=== PATIENT | male | born 1960 | race Caucasian/White ===

== ENCOUNTER → 2019-10-17 16:52 | Outpatient (BNVA) | payer MEDICARE, MEDICAID, SELFPAY | PROVIDERS: Family Provider Family Medicine; PCP Family Medicine; Visit Provider Family Medicine | DX: R41.3 Other amnesia (principal); Z12.2 Encounter for screening for malignant neoplasm of respiratory organs; F17.200 Nicotine dependence, unspecified, uncomplicated; J44.9 Chronic obstructive pulmonary disease, unspecified; I10 Essential (primary) hypertension; E03.9 Hypothyroidism, unspecified | CPT/HCPCS: 80053; 82607; 82746; 84443; 85025 ==

== ENCOUNTER 2019-11-07 07:50 | Outpatient (CLI) | payer MEDICARE, MEDICAID, SELFPAY ==
--- NOTE | 2019-11-07 08:00 | CT_ITS ---
WS: [id number] CT HEAD WITH AND WITHOUT CONTRAST HISTORY: New memory changes, headaches TECHNIQUE: Noncontrast 2.5 mm axial images obtained from the vertex to the skull base. Additional xenia ging performed at 2.5 mm axial images status post IV contrast. Bone and soft tissue windows are revie wed. All CT scans at [facility] use at least one of these dose optimization techniques: a utomated exposure control; mA and/or kV adjustment per patient size (includes targeted exams where do se is matched to clinical indication); or iterative reconstruction. CONTRAST: Omnipaque 300; 95 mL IV. DLP: 1328.14 mGy.cm COMPARISON: 04/29/2013 No acute intracranial hemorrhage, edema or midline shift. No enhancing mass or vascular malformations identified. Dural venous sinuses are normally enhancing. Visualized [place] is unremarkable. Paranasal sinuses as visualized: Clear. Mastoid air cells: Clear. Calvarium and scalp: Intact. Mild atherosclerosis of the intracranial carotid arteries. CT/CT head wo/w con [id number] IMPRESSION: 1. No significant atrophy or volume loss or chronic ischemic disease. 2. No enhancing masses. 3. Mild atherosclerosis intracranial carotid arteries.
[2019-11-07] MEDS: iohexol 300 mg/mL 100 mL Btl IV (09:21)
== END 2019-11-07 07:51 | disposition home or self-care (01) ==
PROVIDERS: Family Provider Family Medicine; PCP Family Medicine; Visit Provider Family Medicine
DX: R51 Headache (principal); R41.3 Other amnesia; I65.29 Occlusion and stenosis of unspecified carotid artery
CPT/HCPCS: 70470

== ENCOUNTER 2019-11-15 11:30 | Outpatient (CLI) | payer MEDICARE, MEDICAID, SELFPAY ==
--- NOTE | 2019-11-15 11:36 | XRR_ITS ---
PROCEDURE INFORMATION: Exam: XR Cervical Spine, 2 or 3 Views Exam date and time: 11/15/2019 11:55 AM Age: 59 years old Clinical indication: Neck pain; Additional info: Cervical pain TECHNIQUE: Imaging protocol: XR of the cervical spine, 2 or 3 views. COMPARISON: CR Cervical Spine AP/Lat* [id number] 08/29/2016 8:54 PM FINDINGS: Vertebrae: Mild disc space narrowing with mild vertebral body overgrowth/spurring C5-C6 and C6-C7. Normal overall alignment. No focal listhesis evident with flexion or extension. Soft tissues: Normal. XR/XR cervical spine fl/ex [id number] IMPRESSION: Mild lower cervical degenerative disc changes. Normal overall alignment.
== END 2019-11-15 11:31 | disposition home or self-care (01) ==
LOC: RAD 11:33
PROVIDERS: Family Provider Family Medicine; PCP Family Medicine; Visit Provider Specialist
DX: M54.2 Cervicalgia (principal)
CPT/HCPCS: 72040

== ENCOUNTER 2019-11-15 11:33 | Outpatient (CLI) | payer MEDICARE, MEDICAID, SELFPAY ==
--- NOTE | 2019-11-15 13:00 | CT_ITS ---
WS: [id number] CT LUNG CANCER SCREENING DLP: 61.02 mGy-cm. DIvol: 1.52 mGy CLINICAL INFORMATION SCREENING VISIT: Baseline COMPARISON: Chest CT 10/18/2009 FINDINGS Diagnostic quality: Satisfactory Comments: None. Lung Nodules: None. Lungs: Hyperexpanded lungs with changes of emphysema. No pneumonia. Heart: Normal size heart with a small amount of pericardial thickening or fluid anteriorly. Other findings: No adenopathy identified on this unenhanced study. Mild atherosclerosis of the thorac ic aortic arch. There is a moderate hiatal hernia. Limited evaluation of the upper abdominal structur es due to low-dose technique. Dorsal column stimulator wires and electrodes over the mid thoracic spine. Thoracic spondylitic vo es with no osteoblastic or osteolytic disease. CT/CT lung screening [id number] IMPRESSION: LUNG-RADS: 1-Negative FOLLOW UP: 12 Month: Continue annual screening with LDCT Moderate size hiatal hernia. Mild emphysema.
== END 2019-11-15 11:34 | disposition home or self-care (01) ==
LOC: RAD 11:35
PROVIDERS: Family Provider Family Medicine; PCP Family Medicine; Visit Provider Family Medicine
DX: Z12.2 Encounter for screening for malignant neoplasm of respiratory organs (principal); K44.9 Diaphragmatic hernia without obstruction or gangrene; J43.9 Emphysema, unspecified; F17.200 Nicotine dependence, unspecified, uncomplicated
CPT/HCPCS: G0297

== ENCOUNTER → 2019-11-28 10:16 | Outpatient (BNVA) | payer MEDICARE, MEDICAID, SELFPAY | PROVIDERS: Family Provider Family Medicine; PCP Family Medicine; Referring Provider Specialist; Visit Provider Anesthesiology Pain Medicine | DX: M47.22 Other spondylosis with radiculopathy, cervical region (principal); M47.812 Spondylosis without myelopathy or radiculopathy, cervical region; F17.210 Nicotine dependence, cigarettes, uncomplicated | CPT/HCPCS: 99204; 99999 ==

== ENCOUNTER → 2019-12-04 13:06 | Outpatient (BNVA) | payer MEDICARE, MEDICAID, SELFPAY | PROVIDERS: Family Provider Family Medicine; PCP Family Medicine; Visit Provider Anesthesiology Pain Medicine | DX: M47.812 Spondylosis without myelopathy or radiculopathy, cervical region (principal); F17.210 Nicotine dependence, cigarettes, uncomplicated | CPT/HCPCS: 64450; 64493; 64494; 64495; J2001; J3490 ==

== ENCOUNTER 2020-02-27 06:00 | Outpatient (RCR) | payer MEDICARE, MEDICAID, SELFPAY | END 2020-03-03 23:59 | disposition home or self-care (01) | LOC: MPT 06:00 | PROVIDERS: PCP Family Medicine; Referring Provider Anesthesiology Pain Medicine; Visit Provider Anesthesiology Pain Medicine | DX: M54.2 Cervicalgia (principal) | CPT/HCPCS: 97140; 97161 ==

== ENCOUNTER 2020-03-04 06:00 | Outpatient (RCR) | payer SELFPAY | END 2020-04-02 23:59 | disposition home or self-care (01) | LOC: MPT 06:00 | PROVIDERS: PCP Family Medicine; Visit Provider Anesthesiology Pain Medicine | DX: M47.812 Spondylosis without myelopathy or radiculopathy, cervical region (principal) | CPT/HCPCS: 97110; 97140; G0283 ==

== ENCOUNTER 2020-07-04 13:33 | Outpatient (CLI) | payer MEDICARE, MEDICAID, SELFPAY ==
--- NOTE | 2020-07-04 13:43 | XR_ITS ---
WS: [id number] Sacroiliac joints, 3 views, 07/04/2020 Clinical Data: ACUTE PAIN OF LEFT HIP Comparison: None. Findings: The SI joints are normal in width. No erosion, sclerosis or destruction is seen. There are no fractur es or dislocations. Pubic symphysis is normal. There is an epidural generator overlying the right lupe e of the L5 vertebral body. There are 2 titanium cages in the L5-S1 disc. The adjacent visualized pelvis and hips are unremarkable. XR/XR sacroiliac jts m 3V [id number] Impression: Negative SI joints.
--- NOTE | 2020-07-04 13:43 | XR_ITS ---
WS: [id number] Sacrum and coccyx, 3 views, 07/04/2020 Clinical Data: ACUTE PAIN OF L HIP Comparison: None. Findings: No fractures or dislocations are seen. The SI joints and pubic symphysis are unremarkable. No bone de struction or erosion is seen. The pubic symphysis is normal. There are clips from a probable fasciectomy overlying the inferior pub ic rami. There are titanium cages within the L5-S1 disc. The stimulator generator overlaps the right side of the L5 vertebral body. XR/XR sacrum coccyx min 2V [id number] Impression: Negative sacrum and coccyx.
== END 2020-07-04 13:34 | disposition home or self-care (01) ==
LOC: RAD 13:39
PROVIDERS: PCP Family Medicine; Visit Provider Chiropractor Orthopedic
DX: M25.552 Pain in left hip (principal)
CPT/HCPCS: 72202; 72220

== ENCOUNTER → 2022-06-23 12:48 | Outpatient (BNVA) | payer MEDICARE, MEDICAID, SELFPAY | PROVIDERS: PCP Family Medicine; Visit Provider Podiatrist Foot & Ankle Surgery | DX: S93.401A Sprain of unspecified ligament of right ankle, initial encounter (principal); X50.9XXA Other and unspecified overexertion or strenuous movements or postures, initial encounter; M25.371 Other instability, right ankle | CPT/HCPCS: 73610; 99203; 99204 ==

== ENCOUNTER 2022-07-01 06:00 | Outpatient (RCR) | payer MEDICARE, MEDICAID, SELFPAY | END 2022-07-03 23:59 | disposition home or self-care (01) | LOC: MPT 06:00 | PROVIDERS: PCP Family Medicine; Visit Provider Orthopaedic Surgery Pediatric Orthopaedic Surgery | DX: M25.571 Pain in right ankle and joints of right foot (principal); R26.81 Unsteadiness on feet | CPT/HCPCS: 97110; 97162; G0283 ==

== ENCOUNTER 2022-07-04 06:00 | Outpatient (RCR) | payer MEDICARE, MEDICAID, SELFPAY | END 2022-08-03 23:59 | disposition home or self-care (01) | LOC: MPT 06:00 | PROVIDERS: PCP Family Medicine; Visit Provider Orthopaedic Surgery Pediatric Orthopaedic Surgery | DX: M25.371 Other instability, right ankle (principal); S93.401D Sprain of unspecified ligament of right ankle, subsequent encounter; X58.XXXD Exposure to other specified factors, subsequent encounter | CPT/HCPCS: 97110 ==

== ENCOUNTER → 2022-07-22 08:31 | Outpatient (BNVA) | payer MEDICARE, MEDICAID, SELFPAY | PROVIDERS: PCP Family Medicine; Visit Provider Podiatrist Foot & Ankle Surgery | DX: M25.371 Other instability, right ankle (principal); S93.401A Sprain of unspecified ligament of right ankle, initial encounter; X58.XXXA Exposure to other specified factors, initial encounter | CPT/HCPCS: 99214 ==

== ENCOUNTER → 2022-12-15 15:05 | Outpatient (BNVA) | payer MEDICARE, MEDICAID, SELFPAY | PROVIDERS: PCP Family Medicine; Referring Provider Family Medicine; Visit Provider Orthopaedic Surgery | DX: M54.9 Dorsalgia, unspecified (principal); Z96.89 Presence of other specified functional implants | CPT/HCPCS: 72070; 72110; 99204 ==

== ENCOUNTER 2022-12-30 10:20 | Day surgery (SDC) | payer MEDICARE, MEDICAID, SELFPAY ==
[2022-12-28 14:36] VITALS: BMI 26.9
[2022-12-30] VITALS (7 sets, daily range): BP systolic 125–145; BP diastolic 73–97; PULSE 70–100; RESP 18; TEMP 36.3–36.7; O2SAT 93–98
[2022-12-30] MEDS: sodium chloride 0.9% 1,000 ML 30 ML IV (11:12)
[2022-12-30] MEDS: HYDROmorphone 1 mg/mL INJ 1 mL 0.5 MG IVP (11:24)
--- NOTE | 2022-12-30 11:30 | P.ANESASSM_ITS ---
Pre-Anesthetic Assessment Height/Weight: Height 1.88 m Weight 95.254 kg Temp Pulse Resp BP Pulse Ox O2 Del Method 98.0 F 70 18 134/94 94 12/30/22 10:35 12/30/22 10:35 12/30/22 11:24 12/30/22 10:35 12/30/22 11:24 12/30/22 10:37 Preop Diagnosis: Failed spinal cord stimulator, chronic pain syndrome Operation Date: 12/30/22 11:45 Proposed Procedures p Spinal Cord Stimulator Placement(Not Applicable) - Arturo Hector DO Familial anesthetic complications: none Was Beta Carlota taken within 24 hours: N/A Was Clonidine taken within 24 hours: N/A Last intake: Intake Last Liquid Date 12/29/22 Last Liquid Time 22:30 Last Solid Date 12/29/22 Last Solid Time 22:30 Social Tobacco and No alcohol Exam alert, oriented x 3 and regular rate & rhythm Airway Submandibular: within normal limits Cervical ROM: within normal limits Mallampati: Class II Pulmonary Chronic Obstructive Pulmonary Disease GI Gastroesophageal Reflux Disease Metabolic Chronic steroids Musc/skel Lower Back Pain and Osteoarthritis/DJD Chronic pain/stimulator Neuropsych Anxiety and Depression Anesthetic Plan ASA status: 3 Anesthesia: General Medications/Allergies Home Medications Medication Instructions Recorded Confirmed Last Taken Type acetaminophen 500 mg tablet 500 - 1,000 mg PO .COMPLEX PRN pain 10/15/19 12/28/22 12/26/22 History (Tylenol Extra Strength) multivitamin 1 tab PO QAM 10/15/19 12/28/22 12/29/22 History dicyclomine 10 mg capsule 10 - 20 mg PO TID PRN abdominal 11/20/19 12/28/22 12/29/22 Rx distention 30 days #90 caps gabapentin 300 mg capsule 1,500 mg PO DAILY 30 days #150 caps 11/20/19 12/28/22 12/29/22 Rx trazodone 100 mg tablet 100 mg PO .at bedtime 30 days #30 11/20/19 12/28/22 12/29/22 Rx tabs gabapentin 600 mg tablet 600 mg PO TID radicular pain #90 11/28/19 12/28/22 12/29/22 Rx (Neurontin) tabs albuterol sulfate 90 mcg/actuation 2 puff inhalation Q6H PRN 03/12/20 12/30/22 1 Week Ago Rx aerosol inhaler shortness of breath or wheezing 30 ~12/23/22 days #18 grams doxycycline hyclate 100 mg tablet 100 mg PO BID 5 days #10 tabs 03/12/20 12/28/22 12/29/22 Rx prednisone 20 mg tablet 40 mg PO .q AM 5 days #10 tabs 03/12/20 12/28/22 12/29/22 Rx oxycodone-acetaminophen 10 mg-325 1 tab PO Q8H PRN Pain 12/15/22 12/28/22 12/29/22 History mg tablet (Percocet) linaclotide 290 mcg capsule 290 mcg PO PRN PRN Constipation 12/28/22 12/30/22 3 Weeks Ago History (Linzess) ~12/09/22 methocarbamol 500 mg tablet 750 mg PO TID musle spasm 12/28/22 12/28/22 12/29/22 History omeprazole 40 mg capsule,delayed 40 mg PO DAILY 12/28/22 12/28/22 12/29/22 History release amitriptyline 50 mg tablet 50 mg PO BEDTIME 12/30/22 12/30/22 12/29/22 History baclofen 10 mg tablet 10 mg PO PRN 12/30/22 12/30/22 1 Week Ago History ~12/23/22 fluticasone fur. 100 mcg-umeclid 1 inh inhalation DAILY 12/30/22 12/30/22 12/29/22 History 62.5 mcg-vilant 25 mcg inhalat.powder (Trelegy Ellipta) pantoprazole 20 mg tablet,delayed 20 mg PO DAILY 12/30/22 12/30/22 12/29/22 History release (Protonix) Allergies Allergy/AdvReac Type Severity Reaction Status Date / Time cyclobenzaprine Allergy Unknown Verified 12/30/22 10:46 [From Flexeril] duloxetine [From Cymbalta] Allergy Unknown Verified 12/30/22 10:46 meloxicam [From Mobic] Allergy Unknown Verified 12/30/22 10:46 Current Medications Generic Name Dose Route Start Last Admin Trade Name Freq PRN Reason Stop Dose Admin Hydromorphone HCl 0.5 mg 12/30/22 10:25 12/30/22 11:24 Hydromorphone 1 Mg/Ml Inj 1 Ml IVP 0.5 mg ONCE PRN Administration For preop pain/anxiety Sodium Chloride 1,000 mls @ 30 mls/hr 12/30/22 10:30 12/30/22 11:12 Sodium Chloride 0.9% IV 12/31/22 10:29 30 mls/hr .Q24H [id number] Administration PFSH Anesthesia Medical History (Updated 12/15/22 @ 15:29 by Madelaine Riggs LPN) Cervical disc disease Cervical disc disorder with myelopathy of mid-cervical region Chronic superficial gastritis without bleeding Degenerative disc disease Depression Dysphagia, pharyngoesophageal Insomnia Irritable bowel syndrome with constipation Neuropathy Nicotine dependence Spondylosis without myelopathy or radiculopathy, cervical region Surgical History H/O shoulder surgery H/O: vasectomy History of lumbar fusion S/P lumbar microdiscectomy Spinal cord stimulator status [place] thoracic spinal cord stimulator implantation; 03/28/2015; [facility] Family History Mother Cancer Social History Smoking and tobacco status: former smoker Alcohol intake: never Lives independently: Yes Household members: significant other Marital status: Single Current occupational status: disabled Data Anesthesia Cardiac Studies: No Data to Display
--- NOTE | 2022-12-30 13:21 | W.PM.OPSUD ---
Surgery/Procedure H&P Update DATE OF PROCEDURE: December 30, 2022 DATE H&P PERFORMED: 12/15/22 H&P UPDATE INFORMATION: I have reviewed H&P completed within last 30 days, I have examined patient prior to procedure and No changes to prior documentation PREOP DIAGNOSIS: Failed spinal cord stimulator, chronic pain syndrome PLANNED PROCEDURE: Operation Date: 12/30/22 11:45 Proposed Procedures p Spinal Cord Stimulator Placement(Not Applicable) - Arturo Hector DO
[2022-12-30] MEDS: ceFAZolin 2,000 MG in sodium chloride 0.9% (plus) 50 ML 100 MG IV (13:27)
[2022-12-30] MEDS: lidocaine-epi 1% 20 mL INJ INJECTION (14:08)
[2022-12-30] MEDS: vancomycin 1,000 MG SDV 1000 MG XX (14:09)
--- NOTE | 2022-12-30 14:32 | PM.OP ---
Operative Report Date of procedure: December 30, 2022 Pre-op diagnosis: Preop Diagnosis Failed spinal cord stimulator, chronic pain syndrome Post-op diagnosis: same Procedure done: 1. Battery exchange for spinal cord stimulator Surgeon: Arturo Hector Senior Lead Project Manager: Kenny Fry Senior Lead Project Manager: The surgical technologist, Kenny Fry, PAC was needed for his expertise spinal cord stimulators. He was important and necessary throughout the procedure to complete in a safe and timely manner. He assisted with patient positioning prepping and draping tissue retraction suctioning of the operative field protection of critical structures and tissue closure Estimated blood loss (mL): 5 Procedure: 1. Battery exchange for spinal cord stimulator Patient brought to the op suite after undergoing anesthesia placed in the prone position. All areas impingement well-padded. Patient was prepped and draped normal sterile fashion skin incision made over the previous incision. The battery was identified. A the battery was then pulled out of the wound there were 2 wires attached. These 2 wires were removed. And new wires were placed into the new battery. New battery was felt to be intact process I rep checked this. The battery was placed back and the wound was again rechecked and felt to be in good position wound was then irrigated and closed in a layered fashion with Vicryl and Monocryl suture. Sterile dressings were applied and patient was transferred to the PACU in stable condition.
--- NOTE | 2022-12-30 16:46 | ANE.PACU2 ---
Inpatient post-anesthesia follow up: Airway intact: Yes Vital signs: Temperature 97.4 F Pulse Rate 74 Respiratory Rate 18 Blood Pressure 125/82 Pulse Oximetry 94 Oxygen Delivery Me thod Room Air Oxygen Flow Rate Fraction of Inspir ed Oxygen Hydration adequate: Yes Nausea and vomiting: No Pain level: 3 Mental status: Baseline
== END 2022-12-30 15:30 | disposition home or self-care (01) ==
PROVIDERS: PCP Family Medicine; Visit Provider Orthopaedic Surgery
PROC: (CPT 63685; principal; 2022-12-30 11:35)
DX: T85.193A Other mechanical complication of implanted electronic neurostimulator, generator, initial encounter (principal); Y83.8 Other surgical procedures as the cause of abnormal reaction of the patient, or of later complication, without mention of misadventure at the time of the procedure; G89.4 Chronic pain syndrome; J44.9 Chronic obstructive pulmonary disease, unspecified; K21.9 Gastro-esophageal reflux disease without esophagitis; Z79.52 Long term (current) use of systemic steroids; Z87.891 Personal history of nicotine dependence
CPT/HCPCS: 63655; C1820; J0330; J0690; J1170; J2250; J2704; J3010; J3370; J7030

== ENCOUNTER → 2023-01-14 09:15 | Outpatient (BNVA) | payer MEDICARE, MEDICAID, SELFPAY | PROVIDERS: PCP Family Medicine; Visit Provider Physician Assistant | DX: Z98.890 Other specified postprocedural states (principal) | CPT/HCPCS: 99024 ==

== ENCOUNTER 2023-02-03 13:44 | Outpatient (CLI) | payer MEDICARE, MEDICAID, SELFPAY ==
--- NOTE | 2023-02-03 16:00 | MR_ITS ---
WS: [id number] EXAMINATION: MR ankle RT wo con* [id number] ORDER DATE: 02/03/2023 2:54 PM COMPARISON: None. HISTORY: S93.401A - Sprain of unspecified ligament of right ankle,... CONTRAST: None. TECHNIQUE: Axial proton density fat sat, axial T1, sagittal proton density, sagittal STIR, coronal T2 fat sat, and coronal T1 sequences performed. After contrast, axial T1 fat sat, coronal T1 fat sat, and sagittal T1 fat sat were performed. FINDINGS: Palpable marker overlying the distal posterior lateral malleolus. This overlies the peroneal tendon s mary mild tenosynovitis with tendinopathy involving the peroneal longus and brevis which appear inta ct distally. Somewhat diminutive peroneal brevis which appears intact distally. Tenosynovitis along the distal per menjivar longus and brevis with fluid along the distal tendon sheaths. ATF not visualized and appears chronically torn. Fluid in the anterolateral gutter.Fluid and edema in the posterior retrocalcaneal recess. Small amount of degenerative edema in the posterior lateral kim ar dome with subchondral cystic change. Tiny osteochondral lesion in this location. Distal Achilles appears intact. Small amount of retrocalcaneal fluid. Normal plantar fascia. Extensor compartment tendons appear intact. Normal flexor compartment tendons.. No evidence of subchondral co llapse. Associated soft tissue edema. Tiny chronic avulsion adjacent to the tip of the medial malleol us. Subchondral cystic change along the articular surface medial malleolus. MR/MR ankle RT wo con* [id number] IMPRESSION: 1. Palpable marker overlying the tip of the lateral malleolus with edema likel y reactive. Partial intrasubstance tear involving the peroneus brevis the level of the lateral malleolus. Peroneus longus appears intact. Distal tendons appea r intact. 2. Extensor and flexor compartment tendons appear intact. 3. Distal Achilles appears intact. Small amount of fluid in the retrocalcaneal bursa. 4. Advanced degenerative changes at the ankle mortise with subchondral cystic change and edema worse involving the posterior lateral talar dome. Normal talar neck. Normal calcaneus. 5. ATF not visualized likely chronically torn. 6. No other acute findings.
== END 2023-02-03 13:45 | disposition home or self-care (01) ==
PROVIDERS: PCP Family Medicine; Visit Provider Podiatrist Foot & Ankle Surgery
DX: S93.401A Sprain of unspecified ligament of right ankle, initial encounter (principal); X58.XXXA Exposure to other specified factors, initial encounter; M25.371 Other instability, right ankle; M19.071 Primary osteoarthritis, right ankle and foot
CPT/HCPCS: 73721

== ENCOUNTER → 2023-03-04 08:55 | Outpatient (BNVA) | payer MEDICARE, MEDICAID, SELFPAY | PROVIDERS: PCP Family Medicine; Visit Provider Podiatrist Foot & Ankle Surgery | DX: L60.0 Ingrowing nail (principal); S93.401A Sprain of unspecified ligament of right ankle, initial encounter; X58.XXXA Exposure to other specified factors, initial encounter; M25.371 Other instability, right ankle | CPT/HCPCS: 11750; 99213; A6219; A6446 ==

== ENCOUNTER → 2023-07-05 13:57 | Outpatient (BNVA) | payer MEDICARE, MEDICAID, SELFPAY | PROVIDERS: PCP Family Medicine; Visit Provider Podiatrist Foot & Ankle Surgery | DX: M25.371 Other instability, right ankle (principal); L60.0 Ingrowing nail | CPT/HCPCS: 99213 ==

== ENCOUNTER → 2024-03-28 14:23 | Outpatient (BNVA) | payer MEDICARE, MEDICAID, SELFPAY | PROVIDERS: PCP Family Medicine; Referring Provider Registered Nurse; Visit Provider Physician Assistant | DX: M23.305 Other meniscus derangements, unspecified medial meniscus, unspecified knee | CPT/HCPCS: 73560; 73565; 99203 ==

== ENCOUNTER → 2024-05-10 08:45 | Outpatient (BNVA) | payer MEDICARE, MEDICAID, SELFPAY | PROVIDERS: PCP Family Medicine; Visit Provider Podiatrist Foot & Ankle Surgery | DX: S86.311A Strain of muscle(s) and tendon(s) of peroneal muscle group at lower leg level, right leg, initial encounter; M19.071 Primary osteoarthritis, right ankle and foot; L60.3 Nail dystrophy; X58.XXXA Exposure to other specified factors, initial encounter; M25.371 Other instability, right ankle | CPT/HCPCS: 99214 ==

== ENCOUNTER → 2024-05-11 10:46 | Outpatient (BNVA) | payer MEDICARE, MEDICAID, SELFPAY | PROVIDERS: PCP Family Medicine; Visit Provider Physician Assistant | DX: M25.561 Pain in right knee; M23.303 Other meniscus derangements, unspecified medial meniscus, right knee | CPT/HCPCS: 99213 ==

== ENCOUNTER 2024-07-07 08:22 | Day surgery (SDC) | payer MEDICARE, MEDICAID, SELFPAY ==
[2024-07-07] VITALS (10 sets, daily range): BP systolic 115–132; BP diastolic 68–89; PULSE 70–89; RESP 13–23; TEMP 36.1–36.7; O2SAT 92–97
--- NOTE | 2024-07-07 | XR_ITS ---
WS: [id number] XR ankle RT 2V [id number] REASON FOR EXAM: PALLAVI PICS FINDINGS: Long metal pin within the lateral talus underlying the talofibular joint space. XR/XR ankle RT 2V [id number] IMPRESSION: Intraoperative image as above.
[2024-07-07] MEDS: sodium chloride 0.9% 1,000 ML 30 ML IV (08:48)
[2024-07-07] MEDS: gabapentin 300 mg Capsule PO (08:49)
--- NOTE | 2024-07-07 09:09 | ANES.PREANE2 ---
Pre-Anesthetic Assessment Height/Weight: Height 6 ft 2 in Weight 226 lb Temp Pulse Resp BP Pulse Ox O2 Del Method 97.6 F 73 18 130/77 94 Room Air 07/07/24 08:37 07/07/24 08:37 07/07/24 08:37 07/07/24 08:37 07/07/24 08:37 07/07/24 08:52 Preop Diagnosis: Right ankle instability, peroneal tendon tear, arthritis onychodystrophy Operation Date: 07/07/24 10:10 Proposed Procedures p Ankle Arthroscopy(Right) - JEY Duong Tendon Repair Foot Peroneal Tendon Repair(Right) - JEY Duong Brostrom Procedure Modified Brostrom(Right) - JEY Duong Matrixectomy right great toe(Right) - Curtis Tim DPM Was Beta Carlota taken within 24 hours: N/A Was Clonidine taken within 24 hours: Yes Last intake: Intake Last Liquid Date 07/06/24 Last Liquid Time 21:00 Last Solid Date 07/06/24 Last Solid Time 18:00 Social No alcohol and No tobacco Exam alert, oriented x 3, clear to auscultation bilaterally and regular rate & rhythm Airway Submandibular: within normal limits Cervical ROM: within normal limits Mallampati: Class II Comments: Comments: edentulous Anesthetic Plan ASA status: 3 Anesthesia: [facility] (specify below) Other: No prior issues with anesthesia NPO since yesterday Patient has a significant history of necrotizing fasciitis of the neck region, requiring 9 surgeries in 2021. He denies any difficulty swallowing or problems breathing. Takes clonidine at night for hypertension. AM BP 130/77 History of hypertension on losartan GERD on omeprazole and Pepcid Chronic pain, takes oxycodone 10?325 3?4 times daily Spinal cord stimulator in place, turned off Patient is able to perform ADLs Plan for preop nerve block Medications/Allergies Home Medications Medication Instructions Recorded Confirmed Last Taken Type acetaminophen 500 mg tablet 500 - 1,000 mg PO PRN PRN pain 10/15/19 07/06/24 07/05/24 History (Tylenol Extra Strength) multivitamin 1 tab PO QAM 10/15/19 07/06/24 07/05/24 History dicyclomine 10 mg capsule 10 - 20 mg (1 - 2 x 10 mg) PO TID 11/20/19 07/06/24 07/05/24 Rx PRN abdominal distention 30 days #90 caps gabapentin 300 mg capsule 1,500 mg (5 x 300 mg) PO DAILY 30 11/20/19 07/06/24 07/05/24 Rx days #150 caps albuterol sulfate 90 mcg/actuation 2 puff inhalation Q6H PRN 03/12/20 07/06/24 07/06/24 Rx aerosol inhaler shortness of breath or wheezing 30 days #18 grams prednisone 20 mg tablet 40 mg (2 x 20 mg) PO .q AM 5 days 03/12/20 07/06/24 07/05/24 Rx #10 tabs linaclotide 290 mcg capsule 290 mcg PO PRN PRN Constipation 12/28/22 07/06/24 07/04/24 History (Linzess) omeprazole 40 mg capsule,delayed 40 mg PO DAILY 12/28/22 07/06/24 07/05/24 History release amitriptyline 50 mg tablet 50 mg PO BEDTIME 12/30/22 07/06/24 07/05/24 History baclofen 10 mg tablet 10 mg PO PRN 12/30/22 07/06/24 07/07/24 History fluticasone fur. 100 mcg-umeclid 1 inh inhalation DAILY 12/30/22 07/06/24 07/06/24 History 62.5 mcg-vilant 25 mcg inhalat.powder (Trelegy Ellipta) oxycodone-acetaminophen 10 mg-325 1 tab PO Q8H PRN Pain 03/28/24 07/06/24 07/07/24 History mg tablet atorvastatin 20 mg tablet 20 mg PO DAILY 05/10/24 07/06/24 07/05/24 History clonidine HCl 0.1 mg tablet 0.1 mg PO PRN PRN Hypertension 05/10/24 07/06/24 07/04/24 History famotidine 20 mg tablet 20 mg PO BID 05/10/24 07/06/24 07/05/24 History losartan 50 mg tablet 50 mg PO DAILY 05/10/24 07/06/24 07/05/24 History trazodone 50 mg tablet 50 mg PO DAILY 05/10/24 07/06/24 07/05/24 History Allergies Allergy/AdvReac Type Severity Reaction Status Date / Time cyclobenzaprine Allergy ADR-Drowsy Verified 07/07/24 08:59 [From Flexeril] duloxetine [From Cymbalta] Allergy ADR-Drowsy Verified 07/07/24 08:59 meloxicam [From Mobic] Allergy ADR-Drowsy Verified 07/07/24 08:59 Current Medications Generic Name Dose Route Start Last Admin Trade Name Freq PRN Reason Stop Dose Admin Sodium Chloride 1,000 mls @ 30 mls/hr 07/07/24 08:30 07/07/24 08:48 Sodium Chloride 0.9% IV 07/08/24 08:29 30 mls/hr .Q24H KRZYSZTOF Administration PFSH Anesthesia Medical History Depression Insomnia Cervical disc disease Nicotine dependence Dysphagia, pharyngoesophageal Spondylosis without myelopathy or radiculopathy, cervical region Degenerative disc disease Neuropathy Cervical disc disorder with myelopathy of mid-cervical region Chronic superficial gastritis without bleeding Irritable bowel syndrome with constipation Surgical History Spinal cord stimulator status [facility] thoracic spinal cord stimulator implantation; 03/28/2015; [facility] [place] History of lumbar fusion H/O: vasectomy S/P lumbar microdiscectomy H/O shoulder surgery Family History Mother Cancer Social History Smoking and tobacco/nicotine status: former use of tobacco/nicotine Alcohol intake: never Substance/Drug Use: current Lives independently: Yes Household members: significant other Marital status: Single Current occupational status: disabled Do you think of yourself as: Straight/Heterosexual Data Anesthesia Cardiac Studies: No Data to Display
--- NOTE | 2024-07-07 10:07 | SUR.PREOP ---
Sciatic nerve block completed on patient using 30ml 0.5% ropivicaine. Patient tolerated well.
--- NOTE | 2024-07-07 10:16 | ANES.PROC ---
Anesthesia Procedures Procedure/Date: 07/07/24 Nerve Block ^: Nerve Block 1: Main Anesthesia: other (100mcg fentanyl) Nerve block location: popliteal Anesthesia monitors applied: pulse oximetry, EKG, BP cuff and oxygen Nerve block position: supine Anesthetic Used: ropivicaine 0.5% Amount of anesthesia used (mL): 30 Ultrasound used to: recognize landmarks Nerve Stimulator Used?: Yes Interscalene/Femoral BLK: 4 stimuplex 21 g needle used for position and inplane approach Injection: neg aspiration of heme Patient Tolerated Procedure: well Complications: none Additional Comments: decadron 4mg added
--- NOTE | 2024-07-07 10:44 | PM.OPSURHP ---
Providers/Chief Complaint Primary Care Provider: Ramon Argueta DO Chief Complaint: M25.371,M25.571,G89.29,S86.160 History of Present Illness Jamil Rojas is a 64 year old male presenting to discuss and schedule surgery for right ankle pain and instability. Patient reports he is having pain daily and is experiencing rolling of his right ankle. Patient would like to schedule surgery around the first part of June. He has previously been worked up for his right ankle pain and has exhausted conservative measures for greater than 12 months and at home physical therapy, MRI was performed of his right ankle on February 03, 2023. Given the amount of pain and instability experiences daily no longer responding to physical therapy consisting of range of motion, strengthening and proprioceptive training as well as bracing and activity modifications and anti-inflammatories he is wishing to discuss surgical intervention. Review of Systems Const: Denies: fever(s) or chills Card: Denies: chest pain or dyspnea on exertion Resp: Denies: dyspnea or productive cough GI: Denies: abdominal pain, nausea or vomiting Musc: Reports: limited range of motion; Denies: joint pain or joint swelling Skin/Breast: Denies: changes in skin color or dry skin Neuro: Denies: numbness in extremities or weakness in extremities Psych: Denies: anxiety Corona/Lymph: Denies: easy bruising or easy bleeding Medications/Allergies Home Medications Medication Instructions Recorded Confirmed Last Taken Type acetaminophen 500 mg tablet 500 - 1,000 mg PO PRN PRN pain 10/15/19 07/06/24 07/05/24 History (Tylenol Extra Strength) multivitamin 1 tab PO QAM 10/15/19 07/06/24 07/05/24 History dicyclomine 10 mg capsule 10 - 20 mg (1 - 2 x 10 mg) PO TID 11/20/19 07/06/24 07/05/24 Rx PRN abdominal distention 30 days #90 caps gabapentin 300 mg capsule 1,500 mg (5 x 300 mg) PO DAILY 30 11/20/19 07/06/24 07/05/24 Rx days #150 caps albuterol sulfate 90 mcg/actuation 2 puff inhalation Q6H PRN 03/12/20 07/06/24 07/06/24 Rx aerosol inhaler shortness of breath or wheezing 30 days #18 grams prednisone 20 mg tablet 40 mg (2 x 20 mg) PO .q AM 5 days 03/12/20 07/06/24 07/05/24 Rx #10 tabs linaclotide 290 mcg capsule 290 mcg PO PRN PRN Constipation 12/28/22 07/06/24 07/04/24 History (Linzess) omeprazole 40 mg capsule,delayed 40 mg PO DAILY 12/28/22 07/06/24 07/05/24 History release amitriptyline 50 mg tablet 50 mg PO BEDTIME 12/30/22 07/06/24 07/05/24 History baclofen 10 mg tablet 10 mg PO PRN 12/30/22 07/06/24 07/07/24 History fluticasone fur. 100 mcg-umeclid 1 inh inhalation DAILY 12/30/22 07/06/24 07/06/24 History 62.5 mcg-vilant 25 mcg inhalat.powder (Trelegy Ellipta) oxycodone-acetaminophen 10 mg-325 1 tab PO Q8H PRN Pain 03/28/24 07/06/24 07/07/24 History mg tablet atorvastatin 20 mg tablet 20 mg PO DAILY 05/10/24 07/06/24 07/05/24 History clonidine HCl 0.1 mg tablet 0.1 mg PO PRN PRN Hypertension 05/10/24 07/06/24 07/04/24 History famotidine 20 mg tablet 20 mg PO BID 05/10/24 07/06/24 07/05/24 History losartan 50 mg tablet 50 mg PO DAILY 05/10/24 07/06/24 07/05/24 History trazodone 50 mg tablet 50 mg PO DAILY 05/10/24 07/06/24 07/05/24 History Allergies Allergy/AdvReac Type Severity Reaction Status Date / Time Alpha-Gal Allergy Unknown Verified 07/07/24 10:18 (Qrvshbvwf-Gzspq-0,3-Gala cyclobenzaprine Allergy ADR-Drowsy Verified 07/07/24 08:59 [From Flexeril] duloxetine [From Cymbalta] Allergy ADR-Drowsy Verified 07/07/24 08:59 meloxicam [From Mobic] Allergy ADR-Drowsy Verified 07/07/24 08:59 PFSH PFSH: Medical History Depression Insomnia Cervical disc disease Nicotine dependence Dysphagia, pharyngoesophageal Spondylosis without myelopathy or radiculopathy, cervical region Degenerative disc disease Neuropathy Cervical disc disorder with myelopathy of mid-cervical region Chronic superficial gastritis without bleeding Irritable bowel syndrome with constipation Surgical History Spinal cord stimulator status [employer] thoracic spinal cord stimulator implantation; 03/28/2015; [facility] [place] History of lumbar fusion H/O: vasectomy S/P lumbar microdiscectomy H/O shoulder surgery Family History Mother Cancer Social History Smoking and tobacco/nicotine status: former use of tobacco/nicotine Alcohol intake: never Substance/Drug Use: current Lives independently: Yes Household members: significant other Marital status: Single Current occupational status: disabled Do you think of yourself as: Straight/Heterosexual Vital Signs Vitals Signs: Last Vital Signs Temp 97.6 F 07/07/24 08:37 Pulse 73 07/07/24 08:37 Resp 18 07/07/24 08:37 BP 130/77 07/07/24 08:37 Pulse Ox 94 07/07/24 08:37 O2 Del Method Room Air 07/07/24 08:52 Weight: Weight last 48 hrs Weight 226 lb Physical Exam Narrative: EXAM NARRATIVE: Patient is alert and oriented ?3 and in no acute distress. The following is a focused bilateral lower extremity exam. VASCULAR: Dorsalis pedis and posterior tibial arteries palpable +2. Capillary refill time less than 3 seconds to the distal hallux bilaterally. Calf is supple and nontender proximally and distally. No pedal edema appreciated. Pedal hair growth present. NEUROLOGICAL: Epicritic and protopathic sensations grossly intact to the lower extremities. +2 Achilles tendon reflex noted bilaterally. Negative Tinel sign upon percussion of lower extremity nerves. DERMATOLOGICAL: Lower extremity skin is well-hydrated, normal texture and turgor. There are no open sores or lesions noted to the lower extremities. No erythema or ecchymosis present to the bilateral legs and feet. Dystrophic right great toe medial border is incurvated and ingrowing without erythema, warmth, drainage or hypergranulation tissue. MUSCULOSKELETAL: Tenderness at the right ATFL and CFL, tenderness at right peroneal tendons, tenderness at right ankle globally at the ankle joint both anterior ankle, medial and lateral gutters there is ligamentous laxity with anterior drawer test to the right ankle compared to the contra limb. No dislocation of the right ankle anteriorly. Positive talar tilt test. Muscle strength 5 out of 5 in all 3 planes. Mild crepitus with range of motion right ankle. Tenderness at dystrophic toenail right great toe medial border. CARDIOVASCULAR: S1, S2, normal rate, normal rhythm. Dorsalis pedis and posterior tibial arteries palpable. LUNGS: Clear to auscltation, no use of acessory muscles, no crackles or wheezes. Data Other data: [employer] [address] [place] [address]. [place] [address] Magnetic Resonance Report SignedPatient: Jamil Rojas Unit #: [id number] : 1960 Age/Sex: 62 / M ADM Date: 02/03/23 Loc: [facility] Room/Bed: Attending Dr: Curtis Tim DPM Ordering Provider/Ordering MD: Curtis Tim DPM Date of Service: 02/03/23 Procedure(s): MR ankle RT wo con* [id number] Accession Number(s): [id number] Report Number: [id number] WS: [id number] EXAMINATION: MR ankle RT wo con* [id number] ORDER DATE: 02/03/2023 2:54 PM COMPARISON: None. HISTORY: S93.401A - Sprain of unspecified ligament of right ankle,... CONTRAST: None. TECHNIQUE: Axial proton density fat sat, axial T1, sagittal proton density, sagittal STIR, coronal T2 fat sat, and coronal T1 sequences performed. After contrast, axial T1 fat sat, coronal T1 fat sat, and sagittal T1 fat sat were performed. FINDINGS: Palpable marker overlying the distal posterior lateral malleolus. This overlies the peroneal tendon sheath mild tenosynovitis with tendinopathy involving the peroneal longus and brevis which appear intact distally. Somewhat diminutive peroneal brevis which appears intact distally. Tenosynovitis along the distal peroneal longus and brevis with fluid along the distal tendon sheaths. ATF not visualized and appears chronically torn. Fluid in the anterolateral gutter.Fluid and edema in the posterior retrocalcaneal recess. Small amount of degenerative edema in the posterior lateral talar dome with subchondral cystic change. Tiny osteochondral lesion in this location. Distal Achilles appears intact. Small amount of retrocalcaneal fluid. Normal plantar fascia. Extensor compartment tendons appear intact. Normal flexor compartment tendons.. No evidence of subchondral collapse. Associated soft tissue edema. Tiny chronic avulsion adjacent to the tip of the medial malleolus. Subchondral cystic change along the articular surface medial malleolus. MR/MR ankle RT wo con* [id number] IMPRESSION: 1. Palpable marker overlying the tip of the lateral malleolus with edema likely reactive. Partial intrasubstance tear involving the peroneus brevis the level of the lateral malleolus. Peroneus longus appears intact. Distal tendons appear intact. 2. Extensor and flexor compartment tendons appear intact. 3. Distal Achilles appears intact. Small amount of fluid in the retrocalcaneal bursa. 4. Advanced degenerative changes at the ankle mortise with subchondral cystic change and edema worse involving the posterior lateral talar dome. Normal talar neck. Normal calcaneus. 5. ATF not visualized likely chronically torn. 6. No other acute findings. Dictated By: Sarthak Berry MD Signed By: Sarthak Berry MD Signed Date/Time: 02/04/23 0923 DD/ [id number] A&P Assessment and plan (1) Tear of peroneal tendon of right foot: (2) Arthritis of right ankle: (3) Right ankle pain: Qualifiers: Chronicity: chronic Qualified Code(s): M25.571 - Pain in right ankle and joints of right foot; G89.29 - Other chronic pain (4) Right ankle instability: (5) Onychodystrophy: Plan 63 year old male patient presenting to clinic to discussed and schedule surgery for right ankle pain and instability. Patient reports he is having pain daily and is experiencing rolling of his right ankle. Patient would like to schedule surgery around the first part of June. He has previously been worked up for his right ankle pain and has exhausted conservative measures for greater than 12 months and at home physical therapy, MRI was performed of his right ankle on February 03, 2023. Given the amount of pain and instability experiences daily no longer responding to physical therapy consisting of range of motion, strengthening and proprioceptive training as well as bracing and activity modifications and anti-inflammatories he is wishing to discuss surgical intervention. Clinically he has ligamentous laxity and pain at the right lateral ankle both at the ATFL and peroneal tendons. He also has pain at the right ankle joint both medial and lateral gutter. MRI significant for intrasubstance tear of the peroneal brevis, degenerative changes of the tibiotalar joint, anterior talofibular ligament not visualized and likely chronically torn. Recommended right ankle scope, right peroneal tendon repair, right Brostr?m and partial matrixectomy of the right great toe medial border can be performed outpatient. I reviewed at length with the patient, the risks, potential complications, benefits, alternatives, expectations, and typical outcomes associated with the surgery. The risks and potential complications were explained in detail, including but not limited to infection, wound dehiscence or soft tissue complications, bleeding and hematoma, chronic edema, neuritis or nerve damage producing numbness or chronic pain, CRPS, failure to relieve pain or worsening pain, thick / painful / unsightly scar, limited motion / stiffness, malposition, delayed union, malunion, or nonunion, fracture, reaction to implants, anesthetic complications, venous thromboembolism, and deformity recurrence. I discussed the notion of no regrets with the patient as it pertains to complications and outcomes. The patient seemed to understand the nature of the proposed care and required convalescence. They asked appropriate questions, answered to their satisfaction. They are aware no guarantees can be made as to a satisfactory outcome and they understand there may be other possible unforeseen complications or outcomes not listed here that will be treated accordingly if they arise. There were no written or implied guarantees given to the patient. They gave informed consent to proceed. Discussed surgical procedures for right ankle Scheduled for right ankle scope, right peroneal tendon repair, right brostrom and medial border matrixecotmy right hallux for June 16, 2024 General Anesthetic, OR table, supine, 90 minutes, mini C arm, Arthrex Coding Level of Care Code Acute Code for [facility] Fwd Diagnoses Tear of peroneal tendon of right foot S86.311A Arthritis of right ankle M19.071 Chronic pain of right ankle M25.571; G89.29 Chronicity: chronic Right ankle instability M25.371 Onychodystrophy L60.3
--- NOTE | 2024-07-07 10:46 | P.HPUD_ITS ---
Surgery/Procedure H&P Update DATE OF PROCEDURE: July 07, 2024 DATE H&P PERFORMED: 07/07/24 H&P UPDATE INFORMATION: I have reviewed H&P completed within last 30 days, I have examined patient prior to procedure, No changes to prior documentation and H&P is in [facility] EMR on date indicated PREOP DIAGNOSIS: Right ankle instability, peroneal tendon tear, arthritis onychodystrophy PLANNED PROCEDURE: Operation Date: 07/07/24 10:10 Proposed Procedures p Ankle Arthroscopy(Right) - JEY Doung Tendon Repair Foot Peroneal Tendon Repair(Right) - JEY Duong Brostrom Procedure Modified Brostrom(Right) - JEY Duong Matrixectomy right great toe(Right) - Curtis Tim DPM
[2024-07-07] MEDS: ceFAZolin 2,000 mg SDV 2000 MG IVP (10:56)
[2024-07-07] MEDS: silver sulfadiazine cream 1% 50 gm 1 APPLIC TOPICAL (11:26)
[2024-07-07] MEDS: lidocaine-epi 1% 20 mL INJ 10 ML INJECTION (11:41)
--- NOTE | 2024-07-07 11:41 | PC.NURSE ---
1% lido w/ epi passed off to sterile field, will inject 10ml into ankle joint. Documented in DEC.
--- NOTE | 2024-07-07 12:16 | P.BOP_ITS ---
Date of Procedure: 12/17/23 Surgeon: Curtis Tim DPM Manager Managed Care(s): JEANNE So Alex Procedure(s) performed: Right peroneal tendon repair, right modified Brostr?m, right ankle scope, right partial matrixectomy of the right great toe medial border. Findings of the procedure(s): Longitudinal tear right peroneal brevis, complete tear ATFL, right. Estimated blood loss: 5 mL Specimen(s) removed: No specimens Post-operative diagnosis: Right peroneal tendon tear, right chronic lateral ankle instability, right ankle arthritis, right onychodystrophy.
--- NOTE | 2024-07-07 12:17 | PM.OP ---
Operative Report Date of procedure: July 07, 2024 Pre-op diagnosis: Right ankle instability M25.371 Chronic pain of right ankle M25.571; G89.29 Tear of peroneal tendon of right foot S86.311A Arthritis of right ankle M19.071 Onychodystrophy L60.3 Post-op diagnosis: Right ankle instability M25.371 Chronic pain of right ankle M25.571; G89.29 Tear of peroneal tendon of right foot S86.311A Arthritis of right ankle M19.071 Onychodystrophy L60.3 Procedure done: 1) right ankle scope. CPT code 46590 2) right peroneal tendon repair. CPT code 00000 3) right modified Brostr?m. CPT code 23102 4) total matrixectomy right great toe. CPT code 49951 Implants: 2-0 Vicryl, 3-0 Vicryl, 4-0 Vicryl, skin sabino, 4-0 nylon Specimens removed/disposition: None Pathology: No pathology Surgeon: Curtis Tim DPM Manufacturing Analyst: Saray Barker JAMA Estimated blood loss: 5 mL 50 minutes IV fluids: See intraoperative documentation Urine output: none Complications: No operative complications Brief History: 63 year old male patient presenting to clinic to discussed and schedule surgery for right ankle pain and instability. Patient reports he is having pain daily and is experiencing rolling of his right ankle. Patient would like to schedule surgery around the first part of June. He has previously been worked up for his right ankle pain and has exhausted conservative measures for greater than 12 months and at home physical therapy, MRI was performed of his right ankle on February 03, 2023. Given the amount of pain and instability experiences daily no longer responding to physical therapy consisting of range of motion, strengthening and proprioceptive training as well as bracing and activity modifications and anti-inflammatories he is wishing to discuss surgical intervention. Clinically he has ligamentous laxity and pain at the right lateral ankle both at the ATFL and peroneal tendons. He also has pain at the right ankle joint both medial and lateral gutter. MRI significant for intrasubstance tear of the peroneal brevis, degenerative changes of the tibiotalar joint, anterior talofibular ligament not visualized and likely chronically torn. Recommended right ankle scope, right peroneal tendon repair, right Brostr?m and partial matrixectomy of the right great toe medial border can be performed outpatient. I reviewed at length with the patient, the risks, potential complications, benefits, alternatives, expectations, and typical outcomes associated with the surgery. The risks and potential complications were explained in detail, including but not limited to infection, wound dehiscence or soft tissue complications, bleeding and hematoma, chronic edema, neuritis or nerve damage producing numbness or chronic pain, CRPS, failure to relieve pain or worsening pain, thick / painful / unsightly scar, limited motion / stiffness, malposition, delayed union, malunion, or nonunion, fracture, reaction to implants, anesthetic complications, venous thromboembolism, and deformity recurrence. I discussed the notion of no regrets with the patient as it pertains to complications and outcomes. The patient seemed to understand the nature of the proposed care and required convalescence. They asked appropriate questions, answered to their satisfaction. They are aware no guarantees can be made as to a satisfactory outcome and they understand there may be other possible unforeseen complications or outcomes not listed here that will be treated accordingly if they arise. There were no written or implied guarantees given to the patient. They gave informed consent to proceed. Procedure: Under mild sedation the patient was brought to the operating room and placed onto the operating table in supine position. A timeout was performed. Anesthesia was then administered by the anesthesia service, of note right popliteal block was performed preoperatively per anesthesia service. Well-padded pneumatic tourniquet was applied to the right high calf. Right lower extremity was scrubbed, prepped and draped utilizing normal aseptic technique. Right foot and ankle were exanguinated with an Esmarch bandage and tourniquet inflated to 250 mmHg. Attention was directed to the right lateral ankle where a curvilinear incision was made at the posterior border of the lateral malleolus coursing distally along the course of the peroneal tendons just proximal to fifth metatarsal base through skin with #15 blade with dissection carried down to peroneal tendon sheath utilizing a combination of sharp and blunt technique. Care was taken to retract and preserve neurovascular and tendinous structures. All bleeders were ligated and cauterized as necessary. Linear incision was performed on the peroneal tendon sheath and peroneal brevis was identified split longitudinally tendon was incised and debrided of devitalized tendon synovitis within the tendon sheath excisionally in nature with a #15 blade and pickups followed by direct repair with tubularization of the right peroneal brevis utilizing 4-0 Vicryl absorbable suture. Incision was irrigated with saline solution, tendon sheath reapproximated with 4-0 Vicryl retinaculum reapproximated 2-0 Vicryl Attention was then directed to the lateral malleolus where incision was mobilized of soft tissue to the level of the anterior talofibular ligament which was torn, this was debrided and directly repaired with 2-0 Vicryl and augmented with Brostr?m 2.0 internal brace with absorbable bone anchor and nonabsorbable orthopedic cord directly over the anterior talofibular ligament with drill holes in the talar body and distal fibula with knotless suture bridge and fiber tack with ankle held in neutral position and care taken to not over tighten the internal brace as well as confirmation of bone anchor within the talar body appropriately without violating the ankle mortise this was confirmed with K wire placement and 3 view standard ankle view of right ankle with C arm. Excellent robust repair with direct repair of the ATFL and augmentation of internal brace appreciated with smooth range of motion and negative anterior drawer and negative talar tilt appreciated intraoperatively. The lateral ankle incision was then irrigated with saline solution and closed with subcutaneous tissue reapproximated with 3-0 Vicryl and skin with skin sabino. Attention was then directed to the anterior right ankle where medial and lateral ankle scope portals were established utilizing standard technique, medial to the tibialis anterior tendon and lateral to the peroneus tertius is not violating the superficial peroneal nerve, Arthrex Beulah scope utilized with excellent visualization of the ankle joint with extensive hemorrhagic synovitis which was shaved with oscillating shaver, no osteochondral defect, Midland's ligament visualized intact, no remaining synovitis after extensive debridement. Irrigation was performed with lactated Ringer's 1 L and portals were closed with 4-0 nylon. Right hallux was painted with Betadine, and a tourniquet was placed about the right hallux. Using a spatula the skin around the nail is loosened and the nail was loosened from the nail bed. Once the nail was completely loose using a hemostat the nail was removed in total. Using a curette the nail matrix was curetted for any remaining nail spicules and to allow for better penetration of the phenol into the matrix. 3 rounds of phenol were placed on the nail root and bed for 30 seconds each. Alcohol was then used after the phenol on the nail bed. Tourniquet was removed and prompt hyperemic response was noted to the distal digit. Dressing applied consisting of Silvadene cream, Adaptic, 4 x 4's, Macie, and Coban lightly without compression. Patient to keep this clean dry and intact for 48 hours, patient is to dress daily with silvadene cream and band-aid. Patient is to return to clinic in 2 weeks for follow-up care. Incisions were dressed with Adaptic, sterile 4 x 4, Kerlix and Eliud wrap followed by application of a well-padded multilayer compressive posterior splint. Tourniquet was deflated and a prompt hyperemic response is noted to the distal digits of the right foot. Patient tolerated the procedure and anesthesia well and was transferred to the PACU with vital signs stable and vascular status intact. He is to be nonweightbearing postoperatively was given him at home care instructions and scheduled follow-up.
--- NOTE | 2024-07-07 13:30 | ANE.PACU2 ---
Inpatient post-anesthesia follow up: Airway intact: Yes Vital signs: Temperature 97.0 F Pulse Rate 70 Respiratory Rate 16 Blood Pressure 125/89 Pulse Oximetry 93 Oxygen Delivery Me thod Room Air Oxygen Flow Rate Fraction of Inspir ed Oxygen Hydration adequate: Yes Nausea and vomiting: No Pain level: 1 Mental status: Baseline
== END 2024-07-07 13:30 | disposition home or self-care (01) ==
PROVIDERS: PCP Family Medicine; Visit Provider Podiatrist Foot & Ankle Surgery
PROC: (CPT 11750; principal; 2024-07-07 10:10)
PROC: (CPT 11750; 2024-07-07 10:10)
PROC: (CPT 27698; 2024-07-07 10:10)
PROC: (CPT 11750; 2024-07-07 10:10)
DX: M25.371 Other instability, right ankle (principal); M25.571 Pain in right ankle and joints of right foot; G89.29 Other chronic pain; M19.071 Primary osteoarthritis, right ankle and foot; S86.311A Strain of muscle(s) and tendon(s) of peroneal muscle group at lower leg level, right leg, initial encounter; X58.XXXA Exposure to other specified factors, initial encounter; L60.3 Nail dystrophy; I10 Essential (primary) hypertension; K21.9 Gastro-esophageal reflux disease without esophagitis; Z79.891 Long term (current) use of opiate analgesic; F32.A Depression, unspecified; Z87.891 Personal history of nicotine dependence
CPT/HCPCS: 11750; 27659; 27698; 29898; 73600; 76000; C1713; J0690; J1100; J2405; J3010; J3490; J7030

== ENCOUNTER 2024-07-18 12:47 | Outpatient (CLI) | payer MEDICARE, MEDICAID, SELFPAY ==
--- NOTE | 2024-07-18 13:00 | MR_ITS ---
WS: [id number] MRI RIGHT KNEE NONCONTRAST TECHNIQUE: Axial PD, coronal PD fat sat, coronal PD, sagittal PD, and sagittal PD fat-sat images obta ined. CLINICAL INFORMATION: right knee pain COMPARISON: None. FINDINGS: Moderate to advanced tricompartmental arthritis. Distal quadriceps and patella tendons are intact. AC L and PCL appear intact. Hypertrophic patella. Small suprapatellar effusion. Grade III chondromalacia patella. Medial and lateral patellar retinaculum appear intact. Small lobulated popliteal cyst measu ring 2.4 x 0.9 cm. Chronic thinning of the medial and lateral meniscus. Chronic appearing degeneration and tears of the lateral meniscus worse involving the posterior horn with a small parameniscal cyst. Normal medial and lateral collateral ligaments. Small meniscal fragment extending into the intercondylar notch with co mplex tear of the medial meniscus at the meniscal root. MR/MR knee RT wo con* [id number] IMPRESSION: 1. Moderate to advanced tricompartment arthritis. 2. ACL and PCL appear intact. 3. Grade III chondromalacia patella. Small suprapatellar effusion. 4. Small lobulated popliteal cyst. 5. Tear of the medial meniscus at the meniscal root with small meniscal fragme nt extending into the intercondylar notch. 6. Chronic appearing tears with desiccation involving the lateral meniscus wor se involving the posterior horn with a small parameniscal cyst. Outbridge grading: grade III: partial-thickness cartilage loss with focal ulcer ation
== END 2024-07-18 12:48 | disposition home or self-care (01) ==
LOC: RAD 12:47
PROVIDERS: PCP Family Medicine; Visit Provider Physician Assistant
DX: M17.11 Unilateral primary osteoarthritis, right knee (principal); M22.41 Chondromalacia patellae, right knee; M71.21 Synovial cyst of popliteal space [Baker], right knee; S83.231A Complex tear of medial meniscus, current injury, right knee, initial encounter; S83.281A Other tear of lateral meniscus, current injury, right knee, initial encounter; X58.XXXA Exposure to other specified factors, initial encounter
CPT/HCPCS: 73721

== ENCOUNTER → 2024-07-27 14:29 | Outpatient (BNVA) | payer MEDICARE, MEDICAID, SELFPAY | PROVIDERS: PCP Family Medicine; Visit Provider Podiatrist Foot & Ankle Surgery | DX: Z98.890 Other specified postprocedural states (principal) | CPT/HCPCS: 99024 ==

== ENCOUNTER → 2024-08-17 14:17 | Outpatient (BNVA) | payer MEDICARE, MEDICAID, SELFPAY | PROVIDERS: PCP Family Medicine; Visit Provider Podiatrist Foot & Ankle Surgery | DX: Z98.890 Other specified postprocedural states (principal); M19.071 Primary osteoarthritis, right ankle and foot; M25.371 Other instability, right ankle | CPT/HCPCS: 99024 ==

== ENCOUNTER 2024-08-29 06:00 | Outpatient (RCR) | payer MEDICARE, MEDICAID, SELFPAY | END 2024-09-02 23:59 | disposition home or self-care (01) | LOC: MPT 06:00 | PROVIDERS: Visit Provider Podiatrist Foot & Ankle Surgery | DX: Z98.890 Other specified postprocedural states (principal); M19.071 Primary osteoarthritis, right ankle and foot; M25.371 Other instability, right ankle | CPT/HCPCS: 97110; 97162 ==

== ENCOUNTER 2024-09-03 06:00 | Outpatient (RCR) | payer MEDICARE, MEDICAID, SELFPAY | END 2024-10-03 23:59 | disposition home or self-care (01) | LOC: MPT 06:00 | PROVIDERS: PCP Family Medicine; Visit Provider Podiatrist Foot & Ankle Surgery | DX: Z98.890 Other specified postprocedural states (principal); M19.071 Primary osteoarthritis, right ankle and foot; M25.371 Other instability, right ankle | CPT/HCPCS: 97110; 97140 ==

== ENCOUNTER → 2024-09-12 08:10 | Outpatient (BNVA) | payer MEDICARE, MEDICAID, SELFPAY | PROVIDERS: PCP Family Medicine; Visit Provider Student in an Organized Health Care Education/Training Program | DX: M94.261 Chondromalacia, right knee; S83.281A Other tear of lateral meniscus, current injury, right knee, initial encounter; M23.303 Other meniscus derangements, unspecified medial meniscus, right knee; X58.XXXA Exposure to other specified factors, initial encounter | CPT/HCPCS: 99214 ==

== ENCOUNTER 2024-10-04 06:30 | Outpatient (RCR) | payer MEDICARE, MEDICAID, SELFPAY | END 2024-11-03 23:59 | disposition home or self-care (01) | LOC: MPT 06:30 | PROVIDERS: PCP Family Medicine; Visit Provider Podiatrist Foot & Ankle Surgery | DX: M19.071 Primary osteoarthritis, right ankle and foot (principal); M25.371 Other instability, right ankle; Z98.890 Other specified postprocedural states | CPT/HCPCS: 97110; 97140 ==

== ENCOUNTER → 2024-10-05 14:35 | Outpatient (BNVA) | payer MEDICARE, MEDICAID, SELFPAY | PROVIDERS: PCP Family Medicine; Visit Provider Podiatrist Foot & Ankle Surgery | DX: Z98.890 Other specified postprocedural states (principal); M19.071 Primary osteoarthritis, right ankle and foot | CPT/HCPCS: 99024 ==

== ENCOUNTER 2024-11-04 06:30 | Outpatient (RCR) | payer MEDICARE, MEDICAID, SELFPAY | END 2024-12-01 23:59 | disposition home or self-care (01) | LOC: MPT 06:30 | PROVIDERS: PCP Family Medicine; Visit Provider Podiatrist Foot & Ankle Surgery | DX: M25.561 Pain in right knee (principal); M53.3 Sacrococcygeal disorders, not elsewhere classified; G89.29 Other chronic pain | CPT/HCPCS: 97110; 97140 ==

== ENCOUNTER 2024-11-27 08:17 | Day surgery (SDC) | payer MEDICARE, MEDICAID, SELFPAY ==
[2024-11-27] VITALS (10 sets, daily range): BP systolic 109–138; BP diastolic 77–97; PULSE 67–96; RESP 14–22; TEMP 36.4–37.1; O2SAT 94–99; BMI 27.9
[2024-11-27] MEDS: sodium chloride 0.9% 1,000 ML 30 ML IV (08:55)
[2024-11-27] MEDS: acetaminophen 1,000 MG/100 ML PIGGYBACK 400 MG IV (08:56)
--- NOTE | 2024-11-27 10:00 | W.PM.OPSFHP ---
Same Day Surgery H&P Indication for Procedure/HPI DATE OF PROCEDURE: November 27, 2024 CHIEF COMPLAINT/INDICATIONFOR SURGICAL PROCEDURE: Right knee medial meniscus tear, lateral meniscus tear, chondromalacia PREOP DIAGNOSIS: Right knee medial and lateral meniscus tear, chondromalacia PLANNED PROCEDURE: Operation Date: 11/27/24 10:20 Proposed Procedures p knee diagnostic and surgical arthroscopy with Partial medial meniscectomy versus repair and partial lateral meniscectomy versus repair(Right) - Bin Jiménez DO s Chondroplasty(Right) - Bin Jiménez DO Medications/Allergies* Home Medications ?Medication ?Instructions ?Recorded ?Confirmed ?Type acetaminophen 500 mg tablet 500 - 1,000 mg PO PRN PRN pain 10/15/19 11/24/24 History (Tylenol Extra Strength) multivitamin 1 tab PO QAM 10/15/19 11/27/24 History linaclotide 290 mcg capsule 290 mcg PO PRN PRN Constipation 12/28/22 11/24/24 History (Linzess) omeprazole 40 mg capsule,delayed 40 mg PO DAILY 12/28/22 11/27/24 History release fluticasone fur. 100 mcg-umeclid 1 inh inhalation DAILY 12/30/22 11/24/24 History 62.5 mcg-vilant 25 mcg inhalat.powder (Trelegy Ellipta) atorvastatin 20 mg tablet 20 mg PO DAILY 05/10/24 11/27/24 History clonidine HCl 0.1 mg tablet 0.1 mg PO PRN PRN Hypertension 05/10/24 11/27/24 History famotidine 20 mg tablet 20 mg PO BID 05/10/24 11/27/24 History losartan 50 mg tablet 50 mg PO DAILY 05/10/24 11/27/24 History trazodone 50 mg tablet 50 mg PO DAILY 05/10/24 11/24/24 History Parafon Forte DSC 500 mg PO QID PRN Spasms 10/24/24 11/24/24 History Allergies/Adverse Reactions Allergy/AdvReac Type Severity Reaction Status Date / Time Alpha-Gal Allergy Unknown Verified 11/27/24 08:40 (Rhmwntikj-Iaexz-8,3-Gala cyclobenzaprine (From Allergy ADR-Drowsy Verified 11/27/24 08:40 Flexeril) duloxetine (From Cymbalta) Allergy ADR-Drowsy Verified 11/27/24 08:40 meloxicam (From Mobic) Allergy ADR-Drowsy Verified 11/27/24 08:40 Current Medications: Generic Name Dose Route Start Last Admin Trade Name Freq PRN Reason Stop Dose Admin Sodium Chloride 1,000 mls @ 30 mls/hr 11/27/24 08:30 11/27/24 08:55 Sodium Chloride 0.9% IV 11/28/24 08:29 30 mls/hr .Q24H KRZYSZTOF Administration Pertinent History/Comorbid Conditions* Medical History (Updated 10/08/24 @ 15:00 by Bin Jiménez DO) Depression Insomnia Cervical disc disease Nicotine dependence Dysphagia, pharyngoesophageal Spondylosis without myelopathy or radiculopathy, cervical region Degenerative disc disease Neuropathy Cervical disc disorder with myelopathy of mid-cervical region Chronic superficial gastritis without bleeding Irritable bowel syndrome with constipation Surgical History (Updated 07/07/24 @ 10:48 by Curtis Tim DPM) Spinal cord stimulator status [employer] thoracic spinal cord stimulator implantation[place]28[place] [facility] [facility] [place] of lumbar fusion H/O: vasectomy S/P lumbar microdiscectomy H/O shoulder surgery Family History (Updated 09/11/19 @ 13:08 by Raina Restrepo RN) Cancer Mother Social History Smoking and tobacco/nicotine status: former use of tobacco/nicotine Alcohol intake: never Substance/Drug Use: current Lives independently: Yes Household members: significant other Marital status: Single Current occupational status: disabled Do you think of yourself as: Straight/Heterosexual Pertinent Exam Findings alert, oriented x 3, operative site marked and procedure specific exam findings Please refer to detailed orthopedic examination on 09/12/2024 listed below: Right Knee Exam: ROM 0 to greater than 120 degrees Medial joint line tenderness to palpation Lateral joint line tenderness to palpation Mild joint effusion Positive Taniya's Negative Liliane's Stable Varus and Valgus stress Gross motor sensory intact Recommendations Surgery/Procedure today Other Plans: Plan to proceed to the OR today for right knee diagnostic and surgical arthroscopy with Partial medial meniscectomy versus repair, partial lateral meniscectomy versus repair, chondroplasty. Patient once again understands the ins and outs procedure the risk benefits complication alternatives with surgery. He understands to that he does have some element of arthritis in this knee that will not be completely cured and may still have some residual pain after this procedure but ultimately understands we will be addressing this meniscus and loose unstable cartilage pieces with a chondroplasty. Patient understands agrees to current plan. Questions answered. Proceed with the OR today. Coding Level of Care Code Acute Code for Chg Fwd
--- NOTE | 2024-11-27 10:11 | ANES.PREANE2 ---
Pre-Anesthetic Assessment Height/Weight: Height 1.85 m Weight 96.162 kg Temp Pulse Resp BP Pulse Ox O2 Del Method 98.7 F 67 17 133/97 97 Room Air 11/27/24 08:46 11/27/24 08:46 11/27/24 08:46 11/27/24 08:46 11/27/24 08:46 11/27/24 08:46 Preop Diagnosis: Right knee medial and lateral meniscus tear, chondromalacia Operation Date: 11/27/24 10:20 Proposed Procedures p knee diagnostic and surgical arthroscopy with Partial medial meniscectomy versus repair and partial lateral meniscectomy versus repair(Right) - Bin Jiménez DO s Chondroplasty(Right) - Bin Jiménez DO Familial anesthetic complications: None Was Beta Carlota taken within 24 hours: N/A Was Clonidine taken within 24 hours: N/A Last intake: Intake Last Liquid Date 11/26/24 Last Liquid Time 20:30 Last Solid Date 11/26/24 Last Solid Time 20:30 Social No alcohol and No tobacco (quit in 2021) Exam alert, oriented x 3, clear to auscultation bilaterally and regular rate & rhythm Airway Mallampati: Class II Dentition: other (none) CV/HEM Hypertension GI Gastroesophageal Reflux Disease Anesthetic Plan ASA status: 3 Anesthesia: General Risk of > 500 ml blood loss (7ml/kg in children): No Medications/Allergies Home Medications ?Medication ?Instructions ?Recorded ?Confirmed ?Last Taken ?Type acetaminophen 500 mg tablet 500 - 1,000 mg PO PRN PRN pain 10/15/19 11/24/24 11/23/24 History (Tylenol Extra Strength) multivitamin 1 tab PO QAM 10/15/19 11/27/24 11/26/24 History dicyclomine 10 mg capsule 10 - 20 mg (1 - 2 x 10 mg) PO TID 11/20/19 11/24/24 11/24/24 Rx PRN abdominal distention 30 days #90 caps gabapentin 300 mg capsule 1,500 mg (5 x 300 mg) PO DAILY 30 11/20/19 11/27/24 11/26/24 Rx days #150 caps albuterol sulfate 90 mcg/actuation 2 puff inhalation Q6H PRN 03/12/20 11/27/24 11/26/24 Rx aerosol inhaler shortness of breath or wheezing 30 days #18 grams linaclotide 290 mcg capsule 290 mcg PO PRN PRN Constipation 12/28/22 11/24/24 07/04/24 History (Linzess) omeprazole 40 mg capsule,delayed 40 mg PO DAILY 12/28/22 11/27/24 11/26/24 History release fluticasone fur. 100 mcg-umeclid 1 inh inhalation DAILY 12/30/22 11/24/24 11/24/24 History 62.5 mcg-vilant 25 mcg inhalat.powder (Trelegy Ellipta) atorvastatin 20 mg tablet 20 mg PO DAILY 05/10/24 11/27/24 11/26/24 History clonidine HCl 0.1 mg tablet 0.1 mg PO PRN PRN Hypertension 05/10/24 11/27/24 11/26/24 History famotidine 20 mg tablet 20 mg PO BID 05/10/24 11/27/24 11/26/24 History losartan 50 mg tablet 50 mg PO DAILY 05/10/24 11/27/24 11/26/24 History trazodone 50 mg tablet 50 mg PO DAILY 05/10/24 11/24/24 11/23/24 History oxycodone-acetaminophen 10 mg-325 1 tab PO Q6H PRN pain 7 days #28 07/14/24 11/27/24 11/26/24 20:00 Rx mg tablet (Percocet) tabs Parafon Forte DSC 500 mg PO QID PRN Spasms 10/24/24 11/24/24 11/23/24 History Allergies Allergy/AdvReac Type Severity Reaction Status Date / Time Alpha-Gal Allergy Unknown Verified 11/27/24 08:40 (Aitzttesa-Uuhsu-5,3-Gala cyclobenzaprine (From Allergy ADR-Drowsy Verified 11/27/24 08:40 Flexeril) duloxetine (From Cymbalta) Allergy ADR-Drowsy Verified 11/27/24 08:40 meloxicam (From Mobic) Allergy ADR-Drowsy Verified 11/27/24 08:40 Current Medications Generic Name Dose Route Start Last Admin Trade Name Freq PRN Reason Stop Dose Admin Sodium Chloride 1,000 mls @ 30 mls/hr 11/27/24 08:30 11/27/24 08:55 Sodium Chloride 0.9% IV 11/28/24 08:29 30 mls/hr .Q24H KRZYSZTOF Administration PFSH Anesthesia Medical History Depression Insomnia Cervical disc disease Nicotine dependence Dysphagia, pharyngoesophageal Spondylosis without myelopathy or radiculopathy, cervical region Degenerative disc disease Neuropathy Cervical disc disorder with myelopathy of mid-cervical region Chronic superficial gastritis without bleeding Irritable bowel syndrome with constipation Surgical History Spinal cord stimulator status [employer] thoracic spinal cord stimulator implantation; [place]28/2015[place] [facility] [place] of lumbar fusion H/O: vasectomy S/P lumbar microdiscectomy H/O shoulder surgery Family History Mother Cancer Social History Smoking and tobacco/nicotine status: former use of tobacco/nicotine Alcohol intake: never Substance/Drug Use: current Lives independently: Yes Household members: significant other Marital status: Single Current occupational status: disabled Do you think of yourself as: Straight/Heterosexual Data Anesthesia Cardiac Studies: No Data to Display
[2024-11-27] MEDS: ceFAZolin 2,000 MG in sodium chloride 0.9% (plus) 50 ML 100 MG IV (11:04)
[2024-11-27] MEDS: lidocaine-epi 2% PF 1:200,000 20 mL SDV 40 ML XX (11:52)
--- NOTE | 2024-11-27 12:20 | W.PM.BPON ---
Date of Procedure: 11/27/2024 Surgeon: Bin Jiménez DO Pottery Machine Operator(s): Albert Jiménez PA-C Procedure(s) performed: Right knee diagnostic and surgical arthroscopy with partial medial meniscectomy Right knee diagnostic and surgical arthroscopy with partial lateral meniscectomy Right knee diagnostic and surgical arthroscopy with medial lateral patellofemoral compartment chondroplasties Right knee diagnostic and surgical arthroscopy with extensive synovectomy (medial lateral patellofemoral compartments) Findings of the procedure(s): Patient was found to have grade 3 4 chondromalacia throughout the knee most pronounced on the patellofemoral and lateral compartments and grade 3 medially patient also found to have a medial and lateral meniscus tear underwent partial medial and lateral meniscectomies as well as extensive synovectomy patient Toller procedure as planned without issues or complications. Estimated blood loss: 5 mL Specimen(s) removed: None Post-operative diagnosis: Right knee medial and lateral meniscus tear, right knee arthritis with grade 3 -4 chondromalacia throughout
--- NOTE | 2024-11-27 12:31 | P.OP_ITS ---
Operative Report Date of procedure: November 27, 2024 Surgeon: Bin Jiménez DO Signals Intelligence Analyst: Albert Jiménez PA-C: PA was necessary for assistance in this case with leg positioning during the arthroscopy procedure as well as assistance with instrumentations throughout the arthroscopy procedure, assistance with wound closure and dressing application. Procedure: Preoperative diagnosis: Right knee medial meniscus tear, lateral meniscus tear, chondromalacia Post-op diagnosis: Right knee medial and lateral meniscus tear, right knee arthritis with grade 3 - 4 chondromalacia throughout, extensive synovitis Procedure done: Right knee diagnostic and surgical arthroscopy with partial medial meniscectomy Right knee diagnostic and surgical arthroscopy with partial lateral meniscectomy Right knee diagnostic and surgical arthroscopy with medial lateral patellofemoral compartment chondroplasties Right knee diagnostic and surgical arthroscopy with extensive synovectomy (medial lateral patellofemoral compartments) Surgeon: Bin Jiménez DO Estimated blood loss: 5mL Tourniquet: No tourniquet was used IV fluids: See anesthesia record Complications: None Findings: See operative report narrative Condition: stable Disposition: same day Brief History: Patient is a 64-year-old male with right?knee?pain.? Patient has failed conservative treatment who has been worked up for right??knee?pain in the outpatient setting. MRI findings consistent with tear of the medial and lateral meniscus and chondromalacia. Talked in the office about treatment options patient would like to proceed with a right knee diagnostic and surgical arthroscopy with Partial medial meniscectomy versus repair, partial lateral meniscectomy versus repair, chondroplasty.? Patient understand the ins and outs of the procedure the risk benefits complication alternatives to treatment options.? Understanding risk of surgery they agree to proceed with surgical intervention.? Patient understand this may not provide patient with complete symptomatic relief of? pain as patient does have some underlying arthritis.? Understanding this and patient agree to proceed with surgical intervention all questions answered. Procedure: Patient seen and evaluated in the preoperative holding area.? Consent was revi ewed and signed with patient.? Correct extremity was then marked.? Patient seen evaluated Anesthesia Department once cleared for surgery patient was taken back to the operative suite.? Patient was transported onto the OR table in supine position.? All bony prominences well-padded patient was appropriate secured to the bed.? Once appropriately anesthetized a nonsterile tourniquet was applied to the right thigh.? The right lower extremity was then prepped and draped in standard orthopedic fashion.? Final timeout performed.? Patient received appropriate preoperative antibiotics. Patient received local anesthetic of lidocaine with epinephrine into the joint as well as around the portal sites.? No tourniquet was inflated A standard 2 portal vertical incision diagnostic and surgical arthroscopy of the right?knee?was performed in standard fashion.? Small stab incision made in the inferolateral portal introduced trocar and arthroscope into the suprapatellar pouch.? Suprapatellar pouch was subsequently visualized and found to have significant synovitis but no loose bodies.? Patient had noticeable significant inflamed infrapatellar fat pad and thickening hypertrophic within the patello femoral compartment.? ?The medial gutter was free of loose bodies I then introduced the arthroscope into the medial compartment.? Within the medial compartment I then established my inferior medial working portal utilizing spinal needle outside in technique.? Once established I then visualized our articular cartilage of the medial compartment with a valgus stress.? Patient was found to have grade 3 chondromalacia throughout the medial compartment.? Next I inspected the meniscus.? With an arthroscopic probe was utilized to visual? all aspects of the meniscus.? Meniscal root was found to be intact.? Meniscus was found to be torn at the body to posterior horn junction.? I then subsequently introduced a basket forceps as well as arthroscopic shaver to perform a partial medial meniscectomy to stable meniscal tissue and then utilized a thermal wand to anneal the edges.? Next, I then performed a synovectomy of the medial compartment.? Given patient's chondromalacia there was areas of unstable articular cartilage and I subsequently performed a chondroplasty with arthroscopic shaver and thermal wand.? This completed medial compartment work. Next a introduced the arthroscope to the intercondylar notch.? PCL and ACL were intact. patient had significant thickening of the infrapatellar fat pad spanning into the medial and lateral compartments.? I then performed an extensive synovectomy with the arthroscopic shaver of the patellofemoral medial and lateral compartments as well as the intercondylar notch. Next I introduced the arthroscope into the lateral compartment the lateral debbi rtment was found to have grade 3-4 chondromalacia.? Lateral meniscus was found to be horn all the way up to the anterior horn and body junction..? The root was intact.? At this point in time I utilized arthroscopic shaver as well as basket forceps to remove and perform a partial lateral meniscectomy to stable meniscal tissue. I then utilized a thermal wand to anneal the edges. At this point give n the grade 3 4 chondromalacia I then performed a chondroplasty of the lateral compartment to stable meniscal tissue utilizing an arthroscopic shaver and thermal wand to stable articular tissue. I then subsequently performed a synovectomy of the lateral compartment.? Next of the arthroscope was placed into the lateral gutter and this was free of loose bodies.? Finally I reintroduced the arthroscope into the patellofemoral compartment.? The patellofemoral was found to have grade 3-4 chondromalacia of the patellofemoral compartment. As a result utilize an arthroscopic shaver and thermal wand to perform a chondroplasty of patellofemoral space to stable articular tissue removing all loose unstable pieces. This was then smoothed over with the shaver and thermal wand. At this point I utilized arthroscopic shaver as well as thermal wand to perform extensive synovectomy of the patellofemoral compartment. This completed my work of the patellofemoral space.? I then switch my portal sites to the medial working portal.? Completed the rest of my synovectomy and the rest of my examination arthroscopy was normal. All fluid was suctioned from the joint.? ?All instruments were withdrawn.? Portal sites were closed with interrupted nylon suture.? portal sites were then covered with with Xeroform 4 x 4's ABD Curlex and Eliud wrap.? Patient was then subsequently awakened from anesthesia and taken to PACU in stable condition. Disposition: Patient taken to PACU in stable condition recovering well.? Will receive appropriate discharge structure as well as pain medication postoperatively as well as? DVT prophylaxis.we will have patient follow-up with us in the office in 2 weeks.? We will weightbearing as tolerated to the right lower extremity.? Patient understands and agrees with current plan.? All questions answered.
--- NOTE | 2024-11-27 12:38 | PM.PACU ---
PACU note Narrative: Patient is a 64-year-old male that just underwent a right knee surgical and diagnostic arthroscopy. Pt transferred to PACU in stable condition. Dressing is dry. pt is awake and alert. pt can wiggle toes and plantarflex and dorsiflex foot. pt able to perform straight leg raise, Femoral nerve intact. Distal pulses are palpable toes are warm and well-perfused. Cap refill is normal and under 2 seconds. Sensation to foot is intact. Pain is controlled. Exam: awake Disposition: discharged
--- NOTE | 2024-11-27 13:50 | ANE.PACU2 ---
Inpatient post-anesthesia follow up: Airway intact: Yes Vital signs: Temperature 97.6 F Pulse Rate 91 Respiratory Rate 17 Blood Pressure 125/83 Pulse Oximetry 95 Oxygen Delivery Me thod Room Air Oxygen Flow Rate 5 Fraction of Inspir ed Oxygen Hydration adequate: Yes Nausea and vomiting: No Pain level: 1 Mental status: Baseline
== END 2024-11-27 13:50 | disposition home or self-care (01) ==
PROVIDERS: PCP Family Medicine; Visit Provider Student in an Organized Health Care Education/Training Program
PROC: (CPT 29870; principal; 2024-11-27 10:20)
PROC: (CPT 29880; 2024-11-27 10:20)
DX: S83.241A Other tear of medial meniscus, current injury, right knee, initial encounter (principal); S83.281A Other tear of lateral meniscus, current injury, right knee, initial encounter; M94.261 Chondromalacia, right knee; Z79.899 Other long term (current) drug therapy; Z88.8 Allergy status to other drugs, medicaments and biological substances; Z87.891 Personal history of nicotine dependence; F32.A Depression, unspecified; G47.00 Insomnia, unspecified; G62.9 Polyneuropathy, unspecified; M65.961 Unspecified synovitis and tenosynovitis, right lower leg
CPT/HCPCS: 29880; J0131; J0690; J2250; J2704; J3010; J7030

== ENCOUNTER → 2024-12-19 15:16 | Outpatient (BNVA) | payer MEDICARE, MEDICAID, SELFPAY | PROVIDERS: PCP Family Medicine; Visit Provider Physician Assistant | DX: Z98.890 Other specified postprocedural states (principal) | CPT/HCPCS: 99024 ==

== ENCOUNTER → 2025-03-01 13:55 | Outpatient (BNVA) | payer MEDICARE, MEDICAID, SELFPAY | PROVIDERS: PCP Family Medicine; Visit Provider Podiatrist Foot & Ankle Surgery | DX: M25.571 Pain in right ankle and joints of right foot (principal); G89.29 Other chronic pain | CPT/HCPCS: 73610 ==

== ENCOUNTER 2025-07-20 13:57 | Outpatient (CLI) | payer MEDICARE, MEDICAID, SELFPAY ==
--- NOTE | 2025-07-20 14:09 | MR_ITS ---
WS: [id number] MRI LUMBAR SPINE NONCONTRAST TECHNIQUE: Sagittal T1, T2 and STIR imaging. Axial T1 and T2 imaging. CLINICAL INFORMATION: LOW BACK PAIN COMPARISON: 2015 FINDINGS: Mild lumbar curve. No acute compression. Interbody disc base fusion L5-S1. Laminectomy defects L4-L5 and L5-S1. Disc space narrowing at L3-4 and L4-5 progressed compared to previous. L1-L2: Narrowing of the LEFT subarticular recess. Mild facet arthropathy. Mild LEFT greater than RIGHT foraminal narrowing. L2-L3: Mild central canal stenosis L2-3 has progressed compared to previous with narrowing of the subarticular recess LEFT greater than RIGHT. LEFT foraminal protrusion with mild LEFT foraminal narrowing. Mild to moderate facet arthropathy. L3-L4: Mild to moderate central canal stenosis with impingement on the traversing L4 nerve roots bilaterally progressed compared to previous with left- right narrowing of the thecal sac. Moderate facet arthropathy ligamentum flavum hypertrophy. Moderate RIGHT L3-4 foraminal narrowing appears progressed with impingement on the exiting RIGHT L3 nerve root. L4-L5: Mild annular bulging. Slight narrowing of the subarticular recess bilaterally LEFT greater than RIGHT. Moderate facet arthropathy. Mild LEFT greater than RIGHT foraminal narrowing. Laminectomy defects. L5-S1: Interbody disc space fusion L5-S1. Spinal canal and foramen are patent. Mild facet arthropathy. Visualized pelvic bony structures: Normal. Paravertebral soft tissues: Normal. MR/MR lumbar spine wo con* [id number] IMPRESSION: 1. Mild lumbar curve. No acute compression. Interbody disc space fusion L5-S1. 2. Laminectomy defects L4-L5 and L5-S1. 3. Mild central canal stenosis L2-3 with narrowing of the LEFT greater than RI GHT subarticular recess has progressed. Small LEFT foraminal protrusion with mi ld LEFT foraminal narrowing 4. Mild to moderate central canal stenosis L3-4 with narrowing of the subartic ular recess bilaterally LEFT greater than RIGHT. Left-right narrowing of the th ecal sac progressed with moderate facet arthropathy. 5. Moderate RIGHT L3-4 foraminal narrowing with a RIGHT foraminal protrusion i mpinges the exiting RIGHT L3 nerve root. This appears progressed compared to pr evious. 6. Mild bilateral L4-5 foraminal narrowing LEFT greater than RIGHT.
== END 2025-07-20 13:58 | disposition home or self-care (01) ==
LOC: RAD 13:59
PROVIDERS: PCP Family Medicine; Visit Provider Family Medicine
DX: M43.27 Fusion of spine, lumbosacral region (principal); M47.816 Spondylosis without myelopathy or radiculopathy, lumbar region; M48.061 Spinal stenosis, lumbar region without neurogenic claudication
CPT/HCPCS: 72148